=== PATIENT | male | born 1970 | race Caucasian/White ===

== ENCOUNTER 2023-12-16 09:43 | Outpatient (CLI) | payer OTHER, SELFPAY | END 2023-12-16 09:44 | disposition home or self-care (01) | LOC: FRMREF 09:45 | PROVIDERS: Visit Provider Physician Assistant Medical | DX: R21 Rash and other nonspecific skin eruption (principal); R53.83 Other fatigue | CPT/HCPCS: 80053 ==

== ENCOUNTER 2024-05-20 13:11 | Outpatient (CLI) | payer OTHER, SELFPAY | END 2024-05-20 13:12 | disposition home or self-care (01) | PROVIDERS: Visit Provider Nurse Practitioner Family | DX: R21 Rash and other nonspecific skin eruption (principal); R53.83 Other fatigue; Z13.6 Encounter for screening for cardiovascular disorders; Z12.5 Encounter for screening for malignant neoplasm of prostate | CPT/HCPCS: 80061; 86618; G0103 ==